=== PATIENT | male | born 1995 | race Caucasian/White ===

== ENCOUNTER 2016-10-31 00:01 | Emergency (ER) | payer OTHER ==
[~2016-10-31] VITALS: Ht 182.9 cm; Wt 94.5 kg
[~2016-10-31 00:01] MED LIST: LISD40CA PO
[2016-10-31 00:12] VITALS: TEMP 36.5; Ht 182.9 cm; Wt 94.5 kg
[2016-10-31] MEDS ORDERED: XYLOCAINE 1%/SOD BICARB 20 ML VIAL INFIL ONE (00:30)
[2016-10-31 01:31] VITALS: BP 126/73; PULSE 80; O2SAT 98
--- NOTE | 2016-10-31 06:21 | EMERGENCY ROOM VISIT NOTE ---
ED Visit Note First contact with patient: 00:14 CHIEF COMPLAINT: Finger laceration HISTORY OF PRESENT ILLNESS: This 21 year old male patient presents to the emergency department after cutting the right thumb about 3 hours ago. The bleeding has not stopped. The patient states that he was lifting up a shoe rack when part of it cut his thumb. Denies weakness or numbness of the finger. The patient has full range of motion of the fingers. The patient rates the pain as dull and 5/10. The patient denies any other injuries. The patient's tetanus shot is up to date. REVIEW OF SYSTEMS: A 6 system review of systems was completed with positives and pertinent negatives listed in the HPI. ALLERGIES: See EMR MEDICATIONS: No chronic medications PMH: Otherwise healthy SOCIAL HISTORY: Lives locally PHYSICAL EXAM: Vital Signs: Reviewed Nurse's notes, vital signs stable. GENERAL : White male, in no acute distress, well developed, well nourished. SKIN: There is a C shaped 3.0 cm long laceration on the palmar aspect of the right first finger. The edges gape apart with traction. There is no foreign material in the wound and it looks clean. There is no significant bleeding. No deep structures such as tendons, bones, or significant blood vessels are seen in the base of the wound. Extension and flexion of the finger is full and strong. Full range of motion of the wrist and other fingers. Capillary refill less than 2 seconds. Normal sensation to light and sharp touch. EMERGENCY DEPARTMENT COURSE: I examined the patient. Verbal consent was obtained to perform the procedure. Using sterile technique the wound was cleansed with Betadine. 4 ml of 1% buffered lidocaine was used to perform a digital block to anesthetize the patient. The area was sterilely draped. Once the patient was anesthetized, the wound was copiously irrigated under pressure with sterile saline. The wound was explored and there were no deep structures injured. The laceration was repaired using 5 simple interrupted 5-0 nylon sutures. The patient tolerated the procedure well. Hemostasis was achieved. The area was cleaned with sterile saline and dressed with bacitracin ointment and bandage. The patient was discharged home in good condition. Current/Historical Medications Scheduled Lisdexamfetamine Dimesylate (Vyvanse), 40 MG PO DAILY Allergies Coded Allergies: Amoxicillin (Verified Allergy, Unknown, hives, 10/31/16) Cefprozil (Verified Allergy, Unknown, hives, 10/31/16) Vital Signs Date Time Temp Pulse Resp B/P Pulse Ox O2 Delivery O2 Flow Rate FiO2 10/31/16 01:31 80 18 126/73 98 10/31/16 00:12 36.5 78 18 142/87 98 Room Air Medications Administered Medications (Trade) Dose Ordered Sig/Nelson Route Start Time Stop Time Status Last Admin Dose Admin Lidocaine HCl (Buffered Lidocaine 1% Inj) 20 ml NOW ONCE INFIL 10/31/16 00:30 10/31/16 00:31 DC 10/31/16 00:27 20 ML Departure Information Impression Primary Impression: Laceration of thumb Dispostion Home / Self-Care Condition GOOD Forms HOME CARE DOCUMENTATION FORM, IMPORTANT VISIT INFORMATION Patient Instructions My [facility] Additional Instructions Keep wound clean and dry. Do not allow any crusting or dried blood to accumulate on sutures. If this occurs, use a mild soap/water on a Q-tip to clean the wound. Do not use Peroxide to clean the wound as this can delay healing Use an antibiotic ointment like Bacitracin for 3-4 days, then let wound dry. You may bathe and shower as normal, but DO NOT SOAK the wound. Suture removal in about 7-10 days with your Family Doctor or in the ER. Return sooner for any signs of infection, increasing redness, swelling, or drainage.
== END 2016-10-31 01:32 | disposition home or self-care (01) ==
LOC: C.EDB 00:04 → C.EDC 01:32
DX: S61.011A Laceration without foreign body of right thumb without damage to nail, initial encounter (principal); W45.8XXA Other foreign body or object entering through skin, initial encounter

== ENCOUNTER 2016-11-09 15:17 | Emergency (ER) | payer OTHER ==
[~2016-11-09] VITALS: Ht 182.9 cm; Wt 91.4 kg
[2016-11-09 15:24] VITALS: BP 150/80; PULSE 82; TEMP 36.8; O2SAT 97; Ht 182.9 cm; Wt 91.4 kg
[2016-11-09] MEDS ORDERED: DOXY-300 PO (15:53)
--- NOTE | 2016-11-09 15:56 | EMERGENCY ROOM VISIT NOTE ---
ED Visit Note First contact with patient: 15:36 CHIEF COMPLAINT: Suture removal This patient returns to the ED today for removal of sutures that were placed 9 days ago. There has been no swelling, new redness, or drainage from the wound. The patient feels like the laceration is healing well, but does note pain overlying one particular region. There is been no additional swelling. REVIEW OF SYSTEMS: Head: No headache, injury or neck pain. Skin: No rash, new lesions, or masses. General: No fever or chills, fatigue, loss of appetite , or significant recent weight gain or loss. PMH: The patient is healthy; there is no significant medical or surgical history. SOCIAL HISTORY: Patient lives at home. PHYSICAL EXAM: Vital Signs: Reviewed Nurse's notes. There is a sutured wound on the right thumb with no signs of infection, but evidence of maceration secondary to leaving the wound covered for the past 9 days. There is minimal erythema, swelling, and tenderness. EMERGENCY DEPARTMENT COURSE: The sutures were removed without any difficulty and there was no separation of the wound edges. I was concerned that the patient had The wound moist for the past 9 days. The wound does appear to be healing well but due to the maceration the wound is not healed as well as I would've hoped in the past 9 days. I do believe it is appropriate to place him on a short course of antibiotic to help cover any potential early infection. The patient is to take this for the next 7 days. Prescription was sent to his pharmacy. He is to wear a splint with the wound uncovered for the next week. I do believe that the skin will fully healed by that time. He is to follow-up with [facility] or return for any worsening. Differential DIAGNOSIS: Healing laceration and suture removal, potential early cellulitis Current/Historical Medications Scheduled Doxycycline (Monohydrate) (Doxycycline), 100 MG PO BID Lisdexamfetamine Dimesylate (Vyvanse), 40 MG PO DAILY Allergies Coded Allergies: Amoxicillin (Verified Allergy, Unknown, hives, 11/09/16) Cefprozil (Verified Allergy, Unknown, hives, 11/09/16) Sulfa Antibiotics (Unverified Allergy, Unknown, HIVES, 11/09/16) Vital Signs Date Time Temp Pulse Resp B/P Pulse Ox O2 Delivery O2 Flow Rate FiO2 11/09/16 15:24 36.8 82 18 150/80 97 Room Air Departure Information Impression Primary Impression: Encounter for removal of sutures Additional Impression: Cellulitis Dispostion Home / Self-Care Condition GOOD Prescriptions Doxycycline (Monohydrate) (Doxycycline) 100 Mg Cap 100 MG PO BID for 7 Days, #14 TABS Prov: Kristian PimentelAMINA Rangel 11/09/16 Referrals No Doctor, Assigned (PCP) Patient Instructions My [facility] Additional Instructions Discharge Instructions: Your sutures have been removed today. Please wear the splint for comfort for the next few days for support of the healing wound. You have been prescribed Doxycycline to be taken as prescribed. This is an antibiotic. All antibiotics have the potential to cause diarrhea. Stop this medication and contact a medical provider if you were to develop any significant adverse side effects including: wheezing, shortness of breath, passing out, vomiting, or a diffuse rash. Always take antibiotics as directed and COMPLETE the ENTIRE course regardless of the improvement of your symptoms. Protect yourself with sunscreen while on this antibiotic as it increases your skin's sensitivity to the light and cause bad sunburns. In addition, you should be sure to take this pill after eating. Make sure the pill is completely swallowed as this medication can cause irritation to the lining of the esophagus. Do NOT drink milk or eat anything with large amounts of Calcium in them 1 hour prior to taking this medication as this will decrease the effectiveness of the medication. This is prescribed for any potential early infection. Look for signs of infection of the wound including: increased pain, swelling, foul discharge, streaking, or increased temperature. If any of these are noticed you should return to the Emergency Department for further assessment and treatment. As with any laceration you may have received nerve damage to the surrounding tissues. This damage may or may not be permanent. You should keep the area covered with sunscreen for the first 6 months to 1 year when at risk for exposure to help minimize scarring. You can also use scar reducing creams or Vitamin E oil to help minimize scarring. For pain control, you can use the following [id number] medicines (if >12 yo): - Regular strength (325mg/tab) Tylenol (acetaminophen) 2 tabs every 4-6 hours as needed. Do not exceed 12 tablets in a 24 hour period. Avoid taking more than 4 grams (4000 mg) of Tylenol per day. This includes any other sources of acetaminophen you may take on a regular basis. - Regular strength (200 mg/tab) Advil (ibuprofen) 1-2 tabs every 4-6 hours as needed. Do not exceed a dose of 3200 mg per day. Return to the emergency department if your symptoms worsen despite treatment course outlined above. Please return to the emergency department with any new/concerning symptoms. Problem Qualifiers Additional Impression:
== END 2016-11-09 15:50 | disposition home or self-care (01) ==
LOC: C.EDB 15:19 → C.EDD 15:50
DX: Z48.02 Encounter for removal of sutures (principal); L03.011 Cellulitis of right finger; S61.011D Laceration without foreign body of right thumb without damage to nail, subsequent encounter; X58.XXXD Exposure to other specified factors, subsequent encounter